=== PATIENT | male | born 1995 | race Caucasian/White ===

== ENCOUNTER 2020-01-11 15:48 | Emergency (ER) | payer BC, SELFPAY ==
[2020-01-11 16:02] VITALS: BP 122/66; PULSE 16; RESP 12; TEMP 36.8; O2SAT 100; BMI 20.9
--- NOTE | 2020-01-11 16:06 | DI.RAD.S_ITS ---
PROCEDURE: XR ACUTE ABDOMEN SERIES INDICATIONS: abd pain TECHNIQUE: One view chest and two views of the abdomen were acquired. COMPARISON: None. FINDINGS: Surgical changes and devices: None. Chest: Lungs are clear. Heart size is normal. No pleural effusions. No pneumoperitoneum. Abdomen: Bowel gas pattern is nonobstructive. Rjjt-mj-njbujssc stool. No suspicious calcifications. Visualized solid organ contours appear normal. Bones: No suspicious bony lesions. IMPRESSION: Robn-gm-wpbdhniw stool. No specific evidence of bowel obstruction seen at this time although if the patient's symptoms do not improve, continued surveillance with abdominal series radiographs could be performed. Dictated by: Donavan Santiago M.D. on 01/11/2020 at 17:19 Approved by: Donavan Santiago M.D. on 01/11/2020 at 17:21
--- NOTE | 2020-01-11 16:20 | ED_ITS ---
HPI - Abdominal Pain <JESSIE HainesP- - Last Filed: 01/11/20 19:46> General Chief Complaint: Abdominal Pain Stated Complaint: abdominal pains Time Seen by Provider: 01/11/20 15:56 Source: patient Mode of arrival: Ambulatory Limitations: no limitations History of Present Illness HPI narrative: The patient is a 24-year-old male nonsmoker who denies pertinent medical history presents with a chief complaint of abdominal pain. He states has been ongoing above his umbilicus. He states is worse with sitting or walking or activity. Gets better when he lays flat. He denies any nausea vomiting or diarrhea. States he had a bowel movement this morning and it was normal. No change in appetite. He states he is eating and drinking well. Took some ibuprofen and states that helped. Has not taken anything otherwise. States that he is concerned about hernia. Denies any testicular pain, states urinating normally with no distress. Related Data Previous Rx's Medication Instructions Recorded cyclobenzaprine 10 mg PO TID PRN #14 tab 01/11/20 ketorolac 10 mg PO TID PRN #14 tab 01/11/20 Allergies Allergy/AdvReac Type Severity Reaction Status Date / Time haloperidol [From Haldol] Allergy Unknown Verified 01/11/20 17:58 metoclopramide [From Reglan] Allergy Unknown Verified 01/11/20 17:58 prochlorperazine Allergy Unknown Verified 01/11/20 17:58 [From Compazine] Review of Systems <Marlene Carballo [facility] - Last Filed: 01/11/20 19:46> Review of Systems Narrative: GENERAL: Denies chills, fatigue, malaise, fever, sweats. HEENT: Denies sinus pain, ear pain, sore throat, difficulty swallowing, dizziness. RESPIRATORY: Denies dyspnea, cough, wheezing, hemoptysis, sputum. CARDIOVASCULAR: Denies chest pain, palpitations, orthopnea, edema, GASTROINTESTINAL: See HPI : Denies dysuria, frequency, incontinence, hematuria, urinary retention. MUSCULOSKELETAL: denies weakness, joint pain, or bony pain SKIN: Denies rash, skin lesions, or other NEUROLOGIC: Denies weakness, headache, numbness, change in speech, confusion, seizures, incoordination. PSYCHIATRIC: No concerning psychosocial issues. 12 point review of systems is negative except for those stated above Patient History <GLEN Haines - Last Filed: 01/11/20 19:46> Social History Smoking Status: Never smoker Smoking Status: Never smoker Substance Use Type: does not use Exam <GLEN Haines - Last Filed: 01/11/20 19:46> Narrative Exam Narrative: GENERAL: This is a well-nourished, well-developed patient, no acute distress wearing abdominal binder HEAD: Atraumatic. Normocephalic. No temporal or scalp tenderness. EYES: Pupils equal round and reactive. Extraocular motions intact. No scleral icterus. No injection or drainage. ENT: Nose without bleeding, purulent drainage or septal hematoma. Throat without erythema, tonsillar hypertrophy or exudate. Uvula midline. Airway patent. NECK: Trachea midline. No JVD or lymphadenopathy. Supple, nontender, no meningeal signs. CARDIOVASCULAR: Regular rate and rhythm RESPIRATORY: Clear to auscultation. Breath sounds equal bilaterally. No wheezes, rales, or rhonchi. No cough. No increased respiratory effort. No accessory muscle use. GASTROINTESTINAL: Abdomen soft, diffuse tenderness superior to umbilicus, nondistended. No hepato-splenomegaly, or palpable masses. No guarding. Pain on Morales's. EXTREMITIES: No clubbing, cyanosis, or edema. No joint tenderness, effusion, or edema noted. BACK: Nontender without deformity or crepitance. No flank tenderness. NEURO: AOx3. SKIN: No rash or erythema on on visible skin Initial Vital Signs Initial Vital Signs: Vital Signs Temperature 98.2 F 01/11/20 16:02 Pulse Rate 16 L 01/11/20 16:02 Respiratory Rate 12 01/11/20 16:02 Blood Pressure 122/66 01/11/20 16:02 Pulse Oximetry 100 01/11/20 16:02 <Shaina Arrieta DO - Last Filed: 01/18/20 07:57> Initial Vital Signs Initial Vital Signs: Vital Signs Temperature 98.2 F 01/11/20 16:02 Pulse Rate 16 L 01/11/20 16:02 Respiratory Rate 12 01/11/20 16:02 Blood Pressure 122/66 01/11/20 16:02 Pulse Oximetry 100 01/11/20 16:02 Scores <GLEN Haines - Last Filed: 01/11/20 19:46> GCS [place] coma scale eye opening: Spontaneous [place] coma scale verbal response: Orientated [place] coma scale motor response: Obey commands [place] coma scale total score: 15 Course <GLEN Haines - Last Filed: 01/11/20 19:46> Orders Ordered: Discontinued Medications Cyclobenzaprine HCl (Flexeril) 10 mg PO NOW ONE Stop: 01/11/20 18:45 Last Admin: 01/11/20 18:55 Dose: Not Given Documented by: MARGARITA Ketorolac Tromethamine (Toradol) 30 mg IV NOW ONE Stop: 01/11/20 17:55 Last Admin: 01/11/20 18:01 Dose: 30 mg Documented by: DON Vital Signs Vital signs: Vital Signs - 8 hr 01/11/20 16:02 01/11/20 17:00 01/11/20 19:19 Temperature 98.2 F Pulse Rate 16 L 74 Respiratory Rate 12 16 Blood Pressure 122/66 114/59 L 116/78 Pulse Oximetry 100 97 <Shaina Arrieta DO - Last Filed: 01/18/20 07:57> Orders Ordered: Discontinued Medications Cyclobenzaprine HCl (Flexeril) 10 mg PO NOW ONE Stop: 01/11/20 18:45 Last Admin: 01/11/20 18:55 Dose: Not Given Documented by: MARGARITA Ketorolac Tromethamine (Toradol) 30 mg IV NOW ONE Stop: 01/11/20 17:55 Last Admin: 01/11/20 18:01 Dose: 30 mg Documented by: DON Vital Signs Vital signs: Vital Signs - 8 hr 01/11/20 16:02 01/11/20 17:00 01/11/20 19:19 Temperature 98.2 F Pulse Rate 16 L 74 Respiratory Rate 12 16 Blood Pressure 122/66 114/59 L 116/78 Pulse Oximetry 100 97 MDM - Abdominal Pain <GLEN Haines - Last Filed: 01/11/20 19:46> Lab Data Result diagrams: 01/11/20 16:15 01/11/20 16:15 Labs: Lab Results 01/11/20 01/11/20 Range/Units 16:15 16:15 WBC 7.6 (4.5-11.0) X10^3/uL RBC 4.78 (4.5-5.9) X10^6/uL Hgb 16.0 (13.5-17.5) g/dL Hct 44.4 (41-53) % MCV 92.8 (80-100) fL MCH 33.4 (26-34) PG MCHC 35.9 (30-36) % RDW 12.4 (11.6-14.8) % Plt Count 236 (150-400) X10^3/uL Neut % (Auto) 61.6 (50-75) % Lymph % (Auto) 28.6 (25-40) % Gentry % (Auto) 7.5 (3-14) % Eos % (Auto) 1.1 L (2-4) % Baso % (Auto) 1.2 (0-2) % Neut # (Auto) 4600 (8451-9152) /uL Lymph # (Auto) 2200 (0516-0594) /uL Gentry # (Auto) 600 (0-900) /uL Eos # (Auto) 100 (0-450) /uL Baso # (Auto) 100 (0-100) /uL Sodium 140 (137-145) mmol/L Potassium 3.6 (3.4-5.1) mmol/L Chloride 105 (98-107) mmol/L Carbon Dioxide 27 (22-32) mmol/L BUN 15 (9-20) mg/dL Creatinine 1.04 (0.66-1.25) mg/dL Estimated GFR > 60.0 (>60) mL/min BUN/Creatinine Ratio 14.4 (6-22) Glucose 103 H (70-100) mg/dL Calcium 9.1 (8.4-10.2) mg/dL Total Bilirubin 0.8 (0.2-1.3) mg/dL AST 31 (17-59) IU/L ALT 17 (<50) IU/L Alkaline Phosphatase 71 (38-126) U/L Total Protein 7.7 (6.3-8.2) g/dL Albumin 4.7 (3.5-5.0) g/dL Globulin 3.0 (1.7-4.1) g/dL Albumin/Globulin Ratio 1.6 (1.0-2.8) Amylase 79 (30-110) U/L Lipase 62 (23-300) U/L Point of care testing: Urine Dip Bedside Urine Glucose Negative Bedside Urine Bilirubin - Negative Bedside Urine Ketone - Negative Urine Specific Stevinson 1.010 Bedside Urine Occult Blood - Negative Bedside Urine pH 7.0 Bedside Urine Protein - Negative Bedside Urine Urobilinogen - Negative Bedside Urine Nitrite - Negative Bedside Urine Leukocytes - Negative Esterase Imaging Data US - abdomen: Radiologist's Impression: [address] [place] [id number] Ultrasound Report Signed Patient: Demetra Bell#: [id number] : 1995Acct:[id number] Age/Sex: 24 / MDate of Service: 01/11/20 Loc: ED Accession Number: [id number] Procedure: US abdomen limited Ordering Provider: Marlene Carballo PROCEDURE: US ABDOMEN LIMITED INDICATIONS: ruq, epigastric pain TECHNIQUE: Real-time scanning was performed of the abdominal and retroperitoneal organs, with image documentation. COMPARISON: None. FINDINGS: Liver: Liver is normal in size and homogeneous in echotexture. Gallbladder: No gallstones. No gallbladder wall thickening, pericholecystic fluid or sonographic Morales's sign. Biliary ducts: Intrahepatic bile ducts are non-dilated. Extrahepatic bile duct caliber measures 1.6 mm. Normal is 6-7 mm or less in diameter, or 10 mm or less post-cholecystectomy. Pancreas: Visualized portions of the pancreas are sonographically normal. Miscellaneous: No free abdominal fluid. IMPRESSION: Normal limited abdominal ultrasound exam. A cause for right upper quadrant pain and epigastric pain is not identified. Dictated by: Dejan Stark M.D. on 01/11/2020 at 16:46 Approved by: Dejan Stark M.D. on 01/11/2020 at 16:47 Abdominal x-ray: Radiologist's Impression: [address] [place] [id number] XRay Report Signed Patient: Demetra Bell#: [id number] : 1995Acct:[id number] Age/Sex: 24 / MDate of Service: 01/11/20 Loc: ED Accession Number: [id number] Procedure: XR acute abdomen series Ordering Provider: Marlene Carballo PROCEDURE: XR ACUTE ABDOMEN SERIES INDICATIONS: abd pain TECHNIQUE: One view chest and two views of the abdomen were acquired. COMPARISON: None. FINDINGS: Surgical changes and devices: None. Chest: Lungs are clear. Heart size is normal. No pleural effusions. No pneumoperitoneum. Abdomen: Bowel gas pattern is nonobstructive. Mfyk-vq-gkhqesot stool. No suspicious calcifications. Visualized solid organ contours appear normal. Bones: No suspicious bony lesions. IMPRESSION: Rjae-zx-qeauzsko stool. No specific evidence of bowel obstruction seen at this time although if the patient's symptoms do not improve, continued surveillance with abdominal series radiographs could be performed. Dictated by: Donavan Santiago M.D. on 01/11/2020 at 17:19 Approved by: Donavan Santiago M.D. on 01/11/2020 at 17:21 [facility] Narrative Medical decision making narrative: The patient is a 24-year-old male who pr esents with a chief complaint of abdominal pain for the past week. He denies any signs of systemic illness, denies any fevers nausea vomiting or diarrhea. He states he is eating and drinking well. He does not have an acute abdomen on exam. X-ray indicates some stool burden. No palpable masses hernias or other abnormalities. Given that he had slight pain to right upper quadrant palpation I did obtain a ultrasound to rule out acute gallbladder etiology. He has no palpable hernias. He has a well and nontoxic appearing throughout his stay in the emergency department. Given that his pain is worse with activity, it is likely abdominal muscle strain or musculoskeletal pain. We elected to try ketorolac in the emergency department which did not help. However offered Flexeril, but patient is unable to obtain ride. Prescriptions sent in. discussed at length coming back to the emergency department for any acute concerns such as inability keep down fluids, abdominal pain with fever etcetera Encouraged the patient to follow up with primary care provider in the next few days even contact information to the [facility] natural resource specialist. <Shaina Arrieta, - Last Filed: 01/18/20 07:57> Lab Data Labs: Lab Results 01/11/20 01/11/20 Range/Units 16:15 16:15 WBC 7.6 (4.5-11.0) X10^3/uL RBC 4.78 (4.5-5.9) X10^6/uL Hgb 16.0 (13.5-17.5) g/dL Hct 44.4 (41-53) % MCV 92.8 (80-100) fL MCH 33.4 (26-34) PG MCHC 35.9 (30-36) % RDW 12.4 (11.6-14.8) % Plt Count 236 (150-400) X10^3/uL Neut % (Auto) 61.6 (50-75) % Lymph % (Auto) 28.6 (25-40) % Gentry % (Auto) 7.5 (3-14) % Eos % (Auto) 1.1 L (2-4) % Baso % (Auto) 1.2 (0-2) % Neut # (Auto) 4600 (9201-0031) /uL Lymph # (Auto) 2200 (0091-8182) /uL Gentry # (Auto) 600 (0-900) /uL Eos # (Auto) 100 (0-450) /uL Baso # (Auto) 100 (0-100) /uL Sodium 140 (137-145) mmol/L Potassium 3.6 (3.4-5.1) mmol/L Chloride 105 (98-107) mmol/L Carbon Dioxide 27 (22-32) mmol/L BUN 15 (9-20) mg/dL Creatinine 1.04 (0.66-1.25) mg/dL Estimated GFR > 60.0 (>60) mL/min BUN/Creatinine Ratio 14.4 (6-22) Glucose 103 H (70-100) mg/dL Calcium 9.1 (8.4-10.2) mg/dL Total Bilirubin 0.8 (0.2-1.3) mg/dL AST 31 (17-59) IU/L ALT 17 (<50) IU/L Alkaline Phosphatase 71 (38-126) U/L Total Protein 7.7 (6.3-8.2) g/dL Albumin 4.7 (3.5-5.0) g/dL Globulin 3.0 (1.7-4.1) g/dL Albumin/Globulin Ratio 1.6 (1.0-2.8) Amylase 79 (30-110) U/L Lipase 62 (23-300) U/L Point of care testing: Urine Dip Bedside Urine Glucose Negative Bedside Urine Bilirubin - Negative Bedside Urine Ketone - Negative Urine Specific Stevinson 1.010 Bedside Urine Occult Blood - Negative Bedside Urine pH 7.0 Bedside Urine Protein - Negative Bedside Urine Urobilinogen - Negative Bedside Urine Nitrite - Negative Bedside Urine Leukocytes - Negative Esterase Discharge Plan Departure Patient Disposition: Home Clinical Impression: Abdominal pain Qualifiers: Abdominal location: generalized Qualified Code(s): R10.84 - Generalized abdominal pain Constipation Qualifiers: Constipation type: unspecified constipation type Qualified Code(s): K59.00 - Constipation, unspecified Discharge Date/Time: 01/11/20 19:20 Instructions: DI for Abdominal Pain-Adult, DI for Constipation, DI for Abdominal Muscle Strain Activity Restrictions/Additional Instructions: Thank you for trusting us with your care today. As discussed, your lab work came back with no acute findings or signs of infec tion. Your ultrasound and x-ray came back with no acute findings. Your x-ray did indicate some constipation, so I have included a packet regarding this. I sent 2 prescriptions to [facility]. This includes ketorolac or Toradol as well as a muscle relaxer called Flexeril or cyclobenzaprine I have given you a prescription of Toradol. This is an NSAID. Do not combine it with other NSAIDs such as Aleve or ibuprofen. I suggest taking it with some food, as it can irritate your stomach. As discussed, please follow-up with primary care provider in the next few days. I have given you contact information [facility] natural resource specialist, who can help you identify PCP. Please come back to emergency department for any acute concerns such as abdominal pain with fever, inability keep down fluids etcetera Prescriptions: New ketorolac 10 mg tablet 10 mg PO TID PRN (Reason: pain) Qty: 14 RF: 0 cyclobenzaprine 10 mg tablet 10 mg PO TID PRN (Reason: muscle spasm) Qty: 14 RF: 0 Referrals: [facility] [Outside] Vitor Sheehan MD [Primary Care Provider] - Stand Alone Forms: Work Release Note <Shaina Arrieta DO - Last Filed: 01/18/20 07:57> Cosign ED Attending Misael Attestation: I was immediately available in the department for consultation. Documentation has been reviewed. I agree with assessment and plan.
[2020-01-11 16:21] LABS: Add Manual Diff / Slide Review NO; Basophils Absolute Auto 100 /uL (0-100); Basophils Percent Auto 1.2 % (0-2); Eosinophils Absolute Auto 100 /uL (0-450); Eosinophils Percent Auto 1.1 % (2-4); Hematocrit 44.4 % (41-53); Lymphocytes Absolute Auto 2200 /uL (1100-4500); Lymphocytes Percent Auto 28.6 % (25-40); Mean Corpuscular HGB Conc 35.9 % (30-36); Mean Corpuscular Hemoglobin 33.4 PG (26-34); Mean Corpuscular Volume 92.8 fL (80-100); Monocytes Absolute Auto 600 /uL (0-900); Monocytes Percent Auto 7.5 % (3-14); Neutrophils Absolute Auto 4600 /uL (1500-7000); Neutrophils Percent Auto 61.6 % (50-75); Platelet Count 236 X10^3/uL (150-400); Red Blood Cell Count 4.78 X10^6/uL (4.5-5.9); Red Cell Distribution Width 12.4 % (11.6-14.8); White Blood Cell Count 7.6 X10^3/uL (4.5-11.0)
--- NOTE | 2020-01-11 16:35 | DI.US.S_ITS ---
PROCEDURE: US ABDOMEN LIMITED INDICATIONS: ruq, epigastric pain TECHNIQUE: Real-time scanning was performed of the abdominal and retroperitoneal organs, with image documentation. COMPARISON: None. FINDINGS: Liver: Liver is normal in size and homogeneous in echotexture. Gallbladder: No gallstones. No gallbladder wall thickening, pericholecystic fluid or sonographic Morales's sign. Biliary ducts: Intrahepatic bile ducts are non-dilated. Extrahepatic bile duct caliber measures 1.6 mm. Normal is 6-7 mm or less in diameter, or 10 mm or less post-cholecystectomy. Pancreas: Visualized portions of the pancreas are sonographically normal. Miscellaneous: No free abdominal fluid. IMPRESSION: Normal limited abdominal ultrasound exam. A cause for right upper quadrant pain and epigastric pain is not identified. Dictated by: Dejan Stark M.D. on 01/11/2020 at 16:46 Approved by: Dejan Stark M.D. on 01/11/2020 at 16:47
[2020-01-11 16:39] LABS: Alanine Aminotransferase 17 IU/L (<50); Albumin 4.7 g/dL (3.5-5.0); Albumin Globulin Ratio 1.6 (1.0-2.8); Alkaline Phosphatase 71 U/L (38-126); Amylase 79 U/L (30-110); Aspartate Aminotransferase 31 IU/L (17-59); BUN Creatinine Ratio 14.4 (6-22); Bilirubin Total 0.8 mg/dL (0.2-1.3); Blood Urea Nitrogen 15 mg/dL (9-20); Calcium 9.1 mg/dL (8.4-10.2); Carbon Dioxide 27 mmol/L (22-32); Chloride 105 mmol/L (98-107); Estimated Glomerular Filt Rate > 60.0 mL/min (>60); Glucose 103 mg/dL (70-100); HEMOLYSIS 54 (0-50); Lipase 62 U/L (23-300); Potassium 3.6 mmol/L (3.4-5.1); Sodium 140 mmol/L (137-145); Total Protein 7.7 g/dL (6.3-8.2)
[2020-01-11 17:00] VITALS: BP 114/59
[2020-01-11] MEDS: KETOROLAC 60 MG/2 ML VIAL 30 MG IV (18:01)
[2020-01-11 19:19] VITALS: BP 116/78; PULSE 74; RESP 16; O2SAT 97
== END 2020-01-11 19:20 | disposition home or self-care (01) ==
PROVIDERS: Emergency Provider Nurse Practitioner Family; Family Provider Family Medicine; PCP Family Medicine
DX: R10.84 Generalized abdominal pain (principal); K59.00 Constipation, unspecified
CPT/HCPCS: 36415; 74022; 76705; 80053; 81003; 82150; 83690; 85025; 96374; 99284; J1885